=== PATIENT | female | born 1990 | race Two or more races ===

== ENCOUNTER 2025-01-21 15:24 | Outpatient (AMB) | payer MEDICAID, SELFPAY ==
[2025-01-21 15:54] VITALS: BP 116/67; PULSE 89; RESP 18; TEMP 36.2; O2SAT 98
--- NOTE | 2025-01-21 15:54 | AMB.OBVISIT ---
Vital Signs 01/21/25 15:54 Weight 85.899 kg Weight Measurement Method Standing Scale BP 116/67 Blood Pressure Source Automatic Cuff Blood Pressure Location Left Upper Arm Position Sitting Respiration 18 Pulse 89 Pulse Source Monitor Temp 97.2 F Temp Source Oral Pulse Oximetry (%) 98 Oxygen Delivery Method Room Air Allergies/Home Meds Allergies & Medications Allergies No Known Allergies Allergy (Verified 01/21/25 15:56) Medication Reconciliation vit no.95-ferrous fumarate 28 mg-folic acid 800 mcg tablet () 1 tab PO QDAY 03/01/22 [History Confirmed 01/21/25] ibuprofen 600 mg tablet 600 mg PO Q6H PRN pain #30 tabs 03/02/22 [Rx Confirmed 01/21/25] Intake Visit Data Collection New Patient or Established: New Patient not seen in past 3 years at [facility] (considered New) Reason for Visit:: disability and ROBY Seen by Clinical Staff ONLY (RN/MA): No Client Support Representative Required: No Do You Feel Safe at Home: Yes Authorities Contacted: N/A PCP or OBGYN visit in last 3 months: No Hx Now: Yes Are you currently on any form of Control: No Pain Present Currently: No Pain Scale Used: You-Thompson/Numerical Pain scale:: 0 Smoking Status Smoking Status: Never smoker Questionnaires Covid-19 Vaccine Questionnaire Has patient been vacinated for Covid-19 Have you been vacinated for Covid-19: Yes PHQ-9 PHQ-2 Over the last 2 weeks, how often have you been bothered by any of the following problems? 1. Little interest or pleasure in doing things: not at all 2. Feeling down, depressed, or hopeless: not at all Total score: 0 PHQ-9 3. Trouble falling or staying asleep, or sleeping too much: Not at all 4. Feeling tired or having little energy: Not at all 5. Poor appetite or overeating: Not at all 6. Feeling bad about yourself - or that you are a failure or have let yourself or your family down: Not at all 7. Trouble concentrating on things, such as reading the newspaper or watching television: Not at all 8. Moving or speaking so slowly that other people could have noticed? - Or the opposite - being so fidgety or restless that you have been moving around a lot more than usual: not at all 9. Thoughts that you would be better off or of hurting yourself in some way: Not at all Total score: 0 If you checked off any problems, how difficult have these problems made it for you to do your work, take care of things at home, or get along with other people?: not difficult at all Source: Developed by Drs. Eusebio George, Shirin Deshpande, Minesh Jj and colleagues, with an educational rose from [employer]. Depression screen completed yes Social History Living Situation History Marital Status: Lives With: Family Housing: House Tobacco History Smoking Status: Never smoker Second Hand Smoke Exposure: No Alcohol History Alcohol Intake: Never Domestic Abuse History Do You Feel Safe at Home: Yes Past Medical History Past Medical History Have you ever been diagnosed with any of the following: Neurological Problems Seizures: No Cardiology Problems Congestive Heart Failure: No Hypertension: No Respiratory Problems Chronic Obstructive Pulmonary Disease (COPD): No Asthma: No Stomache/Intestinal Problems Hepatitis: No Colorectal Cancer: No Genital/Urinary Problems Renal Disease: No Reproductive Problems Breast Cancer: No Pelvic Inflammatory Disease: No Musculoskeletal Problems Bone Cancer: No Endocrine Problems Diabetes Mellitus Type 1: No Diabetes Mellitus Type 2: No Blood Problems Anemia: No Psychologic Problems Depression: No Anxiety: No Other Problems Hospitalization: No Down Syndrome: No Developmental Delay: No Shingles: No Falls: No Blood Transfusions: No Blood Transfusion Reaction: No Anesthesia Reactions: No Organ Transplant: No Chemotherapy: No Radiation Therapy: No Hyperbaric Therapy: No MRSA: No VRSA: No Vancomycin-Resistant Enterococci: No Human Immunodeficiency Virus (HIV): No Chicken Pox: No Measles: No Mumps: No Rubella (Trinid[place] Measles): No Pertussis: No Clostridium Difficile: No Cancer: No Cervical Cancer: No Lung Cancer: No Ovarian Cancer: No History of Present Illness HPI Narrative 34-year-old 5 para 3 for first visit to [facility] OB department. Patient and father [facility] care. First visit at [facility] was at 8 weeks. First ultrasound was October 04. Patient was 12 weeks 4 days. This gives due date April 14, 2025. Patient is B+, antibody screen negative, RPR nonreactive, rubella immune, hepatitis B negative, hep C negative, HIV negative, her GC and Chlamydia were negative. NIPT, AFP and carrier screens all negative. Patient denies social habits. Denies surgery. Denies chronic illness. Patient reports her 1 hour GTT was high. 3-hour GTT was drawn and results are pending. 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 Constantly bending over sitting on the floor. Complains today of sciatic pain that starts up at the top of her buttocks and runs all the way down her right leg. And back pain. She reports that comfort measures and maternity girdle are not helping. Patient would like to go on disability in 2 weeks. Denies labor. Denies leaking or bleeding. Reports fetus is active Review of Systems Review of Systems Systems Reviewed: All systems reviewed, normal except as documented Visit OB Visit Log OB Flowsheet Initial Weight: Not Recorded Date <del>?</del> EGA Weight Edema CTX Effacement BP Fundal ht Pres Dilation Effacement Station Visit Note Alb Glu FHR Mov 01/21/25 <del>?</del> 28w 1d 85.899 kg absent absent 116/67 28.3 Wrong dates. Last ultrasound December 18 baby measured 23 weeks 2 growing in the 90th percentile. Patient has a follow-up maternal- medicine and February 04. Today she is complaining of sciatic pain and back pain. 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 1 hour GTT was abnormal. 3-hour GTT results are pending. Discussed comfort measures. Tylenol as needed. Patient reports that pain even with maternity girdle is not improving. Wrong dates. Last ultrasound December 18 baby measured 23 weeks 2 growing in the 90th percentile. Patient has a follow-up maternal- medicine and February 04. Today she is complaining of sciatic pain and back pain. 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 1 hour GTT was abnormal. 3-hour GTT results are pending. Discussed comfort measures. Tylenol as needed. Patient reports that pain even with maternity girdle is not improving. Return in 2 weeks OB check and to discuss further disability. 139 active BUDDY Calculator Estimated Delivery Date Method Current WG Current Estimate 04/14/25 Ultrasound #2 28w 1d Other Estimates 03/18/25 LMP (Uncertain) 32w 0d 04/14/25 Ultrasound #1 28w 1d Expected Delivery Route/Plan vaginal Exam General Limitations: no limitations General Appearance: alert, in no apparent distress, comfortable, cooperative, healthy appearing, well developed and well groomed Chest Chest inspection: Present normal inspection and symmetric chest wall rise Resp Respiratory exam: Present normal lung sounds bilaterally Card Cardiovascular exam: Present regular rate, normal rhythm and normal heart sounds Abdominal Abdominal exam: Present soft and normal bowel sounds Psych Psychiatric exam: Present normal affect and normal mood Assessment & Plan Diagnosis / Problem List (1) Encounter for supervision of normal in multigravida in second trimester: Status: Acute Plan Discussed comfort measures for back pain. Discussed disability with patient. Patient will return for both OB appointment February 04 and we will start disability. Discussed labor precautions. Discussed GDM diet with patient though 3-hour GTT is pending. Keep appointment with maternal- medicine for growth in 2 weeks. Return February 04 for scheduled OB appointment Additional Plan Follow Up: 2 Weeks (OBC) Office Procedures OB Clinic LOC & Office Proc's Nursing/Assessment Patient Status: Initial/New Patient OB Clinic Nursing Assessment: BP Monitoring, Medication Reconciliation, Update PMH in EMR and Vital Signs OB Clinic Coordination of Care: Education Complex Pt/Fam, Consent,records obtained, informed consent, Education Simp Pt/Fam, Lab and Imaging orders and Staff clarify orders New Patient Charge New Patient Point Assignment: [id number] New Patient Point Charge: SAUSAGE LINKER Level 3 ([id number])
== END 2025-01-21 16:22 | disposition home or self-care (01) ==
LOC: HODSOBC 15:24
PROVIDERS: Supervising Provider Advanced Practice Midwife; Visit Provider Advanced Practice Midwife
DX: O09.893 Supervision of other high risk pregnancies, third trimester (principal); Z3A.28 28 weeks gestation of pregnancy; O99.891 Other specified diseases and conditions complicating pregnancy; M54.40 Lumbago with sciatica, unspecified side
CPT/HCPCS: 99203; G0463

== ENCOUNTER 2025-02-04 13:23 | Outpatient (AMB) | payer MEDICAID, SELFPAY ==
--- NOTE | 2025-02-04 13:40 | AMB.OBVISIT ---
Vital Signs 02/04/25 13:41 Weight 83.574 kg Weight Measurement Method Standing Scale BP 116/70 Blood Pressure Source Automatic Cuff Blood Pressure Location Left Upper Arm Position Sitting Respiration 18 Pulse 99 Pulse Source Monitor Temp 97.2 F Temp Source Oral Pulse Oximetry (%) 99 Oxygen Delivery Method Room Air Allergies/Home Meds Allergies & Medications Allergies No Known Allergies Allergy (Verified 02/04/25 13:41) Medication Reconciliation vit no.95-ferrous fumarate 28 mg-folic acid 800 mcg tablet () 1 tab PO QDAY 03/01/22 [History Confirmed 02/04/25] ibuprofen 600 mg tablet 600 mg PO Q6H PRN pain #30 tabs 03/02/22 [Rx Confirmed 02/04/25] Intake Visit Data Collection New Patient or Established: Established Patient (seen at [facility] within 3 years) Reason for Visit:: obc Seen by Clinical Staff ONLY (RN/MA): No 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 1. Little interest or pleasure in doing things: not at all 2. Feeling down, depressed, or hopeless: not at all Total score: 0 PHQ-9 3. Trouble falling or staying asleep, or sleeping too much: Not at all 4. Feeling tired or having little energy: Not at all 5. Poor appetite or overeating: Not at all 6. Feeling bad about yourself - or that you are a failure or have let yourself or your family down: Not at all 7. Trouble concentrating on things, such as reading the newspaper or watching television: Not at all 8. Moving or speaking so slowly that other people could have noticed? - Or the opposite - being so fidgety or restless that you have been moving around a lot more than usual: not at all 9. Thoughts that you would be better off or of hurting yourself in some way: Not at all Total score: 0 If you checked off any problems, how difficult have these problems made it for you to do your work, take care of things at home, or get along with other people?: not difficult at all Source: Developed by Drs. Eusebio George, Shirin Deshpande, Minesh Jj and colleagues, with an educational rose from [employer]. Depression screen completed yes Social History Living Situation History Lives With: Family Housing: House Tobacco History Smoking Status: Never smoker Second Hand Smoke Exposure: No Alcohol History Alcohol Intake: Never Domestic Abuse History Do You Feel Safe at Home: Yes Past Medical History Past Medical History Have you ever been diagnosed with any of the following: Neurological Problems Seizures: No Cardiology Problems Congestive Heart Failure: No Hypertension: No Respiratory Problems Chronic Obstructive Pulmonary Disease (COPD): No Asthma: No Stomache/Intestinal Problems Hepatitis: No Colorectal Cancer: No Genital/Urinary Problems Renal Disease: No Reproductive Problems Breast Cancer: No Pelvic Inflammatory Disease: No Musculoskeletal Problems Bone Cancer: No Endocrine Problems Diabetes Mellitus Type 1: No Diabetes Mellitus Type 2: No Blood Problems Anemia: No Psychologic Problems Depression: No Anxiety: No Other Problems Hospitalization: No Down Syndrome: No Developmental Delay: No Shingles: No Falls: No Blood Transfusions: No Blood Transfusion Reaction: No Anesthesia Reactions: No Organ Transplant: No Chemotherapy: No Radiation Therapy: No Hyperbaric Therapy: No MRSA: No VRSA: No Vancomycin-Resistant Enterococci: No Human Immunodeficiency Virus (HIV): No Chicken Pox: No Measles: No Mumps: No Rubella (Tamazight Measles): No Pertussis: No Clostridium Difficile: No Cancer: No Cervical Cancer: No Lung Cancer: No Ovarian Cancer: No Care OB Visit Log OB Flowsheet Initial Weight: Not Recorded Date <del>?</del> EGA Weight Edema CTX Effacement BP Fundal ht Pres Dilation Effacement Station Visit Note Alb Glu FHR Mov 01/21/25 <del>?</del> 28w 1d 85.899 kg absent absent 116/67 28.3 Wrong dates. Last ultrasound December 18 baby measured 23 weeks 2 growing in the 90th percentile. Patient has a follow-up maternal- medicine and February 04. Today she is complaining of sciatic pain and back pain. 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 1 hour GTT was abnormal. 3-hour GTT results are pending. Discussed comfort measures. Tylenol as needed. Patient reports that pain even with maternity girdle is not improving. Wrong dates. Last ultrasound December 18 baby measured 23 weeks 2 growing in the 90th percentile. Patient has a follow-up maternal- medicine and February 04. Today she is complaining of sciatic pain and back pain. 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 1 hour GTT was abnormal. 3-hour GTT results are pending. Discussed comfort measures. Tylenol as needed. Patient reports that pain even with maternity girdle is not improving. Return in 2 weeks OB check and to discuss further disability. 139 active BUDDY Calculator Estimated Delivery Date Method Current WG Current Estimate 04/14/25 Ultrasound #2 30w 1d Other Estimates 03/18/25 LMP (Uncertain) 34w 0d 04/14/25 Ultrasound #1 30w 1d Expected Delivery Route/Plan vaginal Assessment & Plan Diagnosis / Problem List (1) Encounter for supervision of normal in multigravida in second trimester: Status: Acute Plan disability start 02/08/25, return to work 6 week pp. continue comfort measure for ligament pain and sciatic/low back pain. TDAP NV, discuss GDM diet and weight gain, walk 40 minute daily. f/u mfm /. rtc 2 week Office Procedures OB Clinic LOC & Office Proc's Nursing/Assessment Patient Status: Established Patient OB Clinic Nursing Assessment: BP Monitoring, Medication Reconciliation, Update PMH in EMR and Vital Signs OB Clinic Coordination of Care: Consent,records obtained, informed consent, Education Simp Pt/Fam and Staff clarify orders Special Needs: Heart tones Established Patient Charge Established Patient Point Assignment: 105 Established Patient Point Charge: EP Level 3 (80-115)
[2025-02-04 13:41] VITALS: BP 116/70; PULSE 99; RESP 18; TEMP 36.2; O2SAT 99
== END 2025-02-04 14:54 | disposition home or self-care (01) ==
LOC: HODSOBC 13:23
PROVIDERS: Supervising Provider Advanced Practice Midwife; Visit Provider Advanced Practice Midwife
DX: Z34.83 Encounter for supervision of other normal pregnancy, third trimester (principal); Z3A.30 30 weeks gestation of pregnancy
CPT/HCPCS: 81001; 99213; G0463

== ENCOUNTER 2025-03-04 09:55 | Outpatient (AMB) | payer MEDICAID, SELFPAY ==
[2025-03-04 10:01] VITALS: BP 131/71; PULSE 84; RESP 18; TEMP 36.2; O2SAT 96
--- NOTE | 2025-03-04 10:02 | OBCLNT_ITS ---
Vital Signs 03/04/25 10:01 03/04/25 10:03 Weight 87.09 kg Weight Measurement Method Standing Scale BP 131/71 H 131/71 H Blood Pressure Source Automatic Cuff Blood Pressure Location Left Upper Arm Position Sitting Respiration 18 18 Pulse 84 84 Pulse Source Monitor Temp 97.2 F 97.2 F Temp Source Oral Pulse Oximetry (%) 96 96 Oxygen Delivery Method Room Air Allergies/Home Meds Allergies & Medications Allergies No Known Allergies Allergy (Verified 03/04/25 10:02) Medication Reconciliation vit no.95-ferrous fumarate 28 mg-folic acid 800 mcg tablet () 1 tab PO QDAY 03/01/22 [History Confirmed 03/04/25] ibuprofen 600 mg tablet 600 mg PO Q6H PRN pain #30 tabs 03/02/22 [Rx Confirmed 03/04/25] Intake Visit Data Collection New Patient or Established: Established Patient (seen at [facility] within 3 years) Reason for Visit:: OBC Seen by Clinical Staff ONLY (RN/MA): No Writing Center Director Required: No Do You Feel Safe at Home: Yes Authorities Contacted: N/A PCP or OBGYN visit in last 3 months: Yes Date of Last PCP or OBGYN visit: 02/04/25 Hx Now: Yes Are you currently on any form of Control: No Pain Present Currently: No Pain Scale Used: You-Thompson/Numerical Pain scale:: 0 Smoking Status Smoking Status: Never smoker Questionnaires Covid-19 Vaccine Questionnaire Has patient been vacinated for Covid-19 Have you been vacinated for Covid-19: Yes PHQ-9 PHQ-2 Over the last 2 weeks, how often have you been bothered by any of the following problems? 1. Little interest or pleasure in doing things: not at all 2. Feeling down, depressed, or hopeless: not at all Total score: 0 PHQ-9 3. Trouble falling or staying asleep, or sleeping too much: Not at all 4. Feeling tired or having little energy: Not at all 5. Poor appetite or overeating: Not at all 6. Feeling bad about yourself - or that you are a failure or have let yourself or your family down: Not at all 7. Trouble concentrating on things, such as reading the newspaper or watching television: Not at all 8. Moving or speaking so slowly that other people could have noticed? - Or the opposite - being so fidgety or restless that you have been moving around a lot more than usual: not at all 9. Thoughts that you would be better off or of hurting yourself in some way: Not at all Total score: 0 If you checked off any problems, how difficult have these problems made it for you to do your work, take care of things at home, or get along with other people?: not difficult at all Source: Developed by Drs. Eusebio George, Shirin Deshpande, Minesh Jj and colleagues, with an educational rose from [employer]. 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 Last ultras ound December 18 baby measured 23 weeks 2 growing in the 90th percentile. Patient has a follow-up maternal- medicine and February 04. Today she is complaining of sciatic pain and back pain. 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 1 hour GTT was abnormal. 3-hour GTT results are pending. Discussed comfort measures. Tylenol as needed. Patient reports that pain even with maternity girdle is not improving. Wrong dates. Last ultrasoun d December 18 baby measured 23 weeks 2 growing in the 90th percentile. Patient has a follow-up maternal- medicine and February 04. Today she is complaining of sciatic pain and back pain. 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 1 hour GTT was abnormal. 3-hour GTT results are pending. Discussed comfort measures. Tylenol as needed. Patient reports that pain even with maternity girdle is not improving. Return in 2 weeks OB check and to discuss further disability. 02/04/25 -?-?-?-?-?-?-?-?-?-?-?-?- 30w 1d 83.574 kg 116/70 absent 30 135 ac tive no c/o PTL symptoms, fetus active. continue sciatic pain, radiates down both legs, start at top of buttocks. also c/o ligament pain, maternity girdle does not help. 04/11. tylenol does not help. 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 disability starting 02/08. 3 hr gtt normal. f/u sono 03/21/25. ptl precaution, MFM 02/01, good growth EFW 3 lb 03/04/25 -?-?-?-?-?-?-?-?-?-?-?-?- 34w 1d 87.09 kg 131/71 131/71 absent cephalic 32 146 active no ob complaints, fetus active, no leaking,no bleeding TDAP today, f/u mfm: 03/18(fetus 90%). discuss PTL precaution and fkc bid. rtc 2 week, hydrate, discuss diet and weight BUDDY Calculator Estimated Delivery Date Method Current WG Current Estimate 04/14/25 Ultrasound #1 34w 1d Other Estimates 03/18/25 LMP (Uncertain) 38w 0d 04/14/25 Ultrasound #2 34w 1d Expected Delivery Route/Plan vaginal Notes Visit Date: 03/04/25 Last Updated by: Nafisa Perez CNM 34 yo . wrong date. 10/04/24: 12w4: EDC . anatomy: 12/18: 23w1: 04/14/25. B+,abs-,rpr;;nr, rub imm, hbsag-,hiv-,hc-,GC/CT-3 hr gtt: normal Office Procedures OB Clinic LOC & Office Proc's Nursing/Assessment Patient Status: Established Patient OB Clinic Nursing Assessment: Medication Reconciliation, Update PMH in EMR and Vital Signs OB Clinic Coordination of Care: Education Complex Pt/Fam, Consent,records obtained, informed consent, Lab and Imaging orders, Results/Orders obtained and Staff clarify orders Special Needs: Heart tones Established Patient Charge Established Patient Point Assignment: 115 Established Patient Point Charge: EP Level 3 (80-115) Injection/Vaccine Admin Admin 1st Vaccine: Yes Immunizations diphth,pertus(acell),tetanus 2.5 Lf unit-8 mcg-5 Lf/0.5mL IM syringe Performing Provider: Nafisa Perez CNM Performing Location: [facility] Administered by: Mahnaz Ayala MA on 03/04/25 11:53 Dose Route Admin Location Dispensed Lot Number Expiration Date [facility] Personnel Security Assistant 0.5 mL IM Left Deltoid 0.5 mL [id number] 03/16/27 [id number] [employer] VIS Given Date VIS Provided VIS Publication Date 03/04/25 Single Vaccine 23 Eligibility Eligibility Date Funding Source Public Non[facility] Assessment & Plan Diagnosis / Problem List (1) Supervision of normal intrauterine in multigravida in third trimester: Status: Acute Plan discuss ptl prec and fkc bid, hydrate. f/u MFM 03/18, discuss GDM diet, TDAP,rtc 2 week obc Additional Plan Follow Up: 2 Weeks (obc)
[2025-03-04 10:03] VITALS: BP 131/71; PULSE 84; RESP 18; TEMP 36.2; O2SAT 96
== END 2025-03-04 10:35 | disposition home or self-care (01) ==
LOC: HODSOBC 09:55
PROVIDERS: PCP Physician Assistant; Referring Provider Physician Assistant; Supervising Provider Advanced Practice Midwife; Visit Provider Advanced Practice Midwife
DX: Z34.83 Encounter for supervision of other normal pregnancy, third trimester (principal); Z3A.34 34 weeks gestation of pregnancy; Z23 Encounter for immunization
CPT/HCPCS: 90471; 90715; 99213; G0463

== ENCOUNTER 2025-03-18 14:46 | Outpatient (AMB) | payer MEDICAID, SELFPAY ==
[2025-03-18 15:35] VITALS: BP 110/63; PULSE 75; RESP 17; TEMP 36.7; O2SAT 96
--- NOTE | 2025-03-18 15:35 | AMB.OBVISIT ---
Vital Signs 03/18/25 15:35 Weight 86.806 kg Weight Measurement Method Standing Scale BP 110/63 Blood Pressure Source Automatic Cuff Blood Pressure Location Right Upper Arm Position Sitting Respiration 17 Pulse 75 Pulse Source Monitor Temp 98.1 F Temp Source Temporal Artery Scan Pulse Oximetry (%) 96 Oxygen Delivery Method Room Air Allergies/Home Meds Allergies & Medications Allergies No Known Allergies Allergy (Verified 03/18/25 15:36) Medication Reconciliation vit no.95-ferrous fumarate 28 mg-folic acid 800 mcg tablet () 1 tab PO QDAY 03/01/22 [History Confirmed 03/18/25] ibuprofen 600 mg tablet 600 mg PO Q6H PRN pain #30 tabs 03/02/22 [Rx Confirmed 03/18/25] Intake Visit Data Collection New Patient or Established: Established Patient (seen at [facility] within 3 years) 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 1. Little interest or pleasure in doing things: not at all 2. Feeling down, depressed, or hopeless: not at all Total score: 0 PHQ-9 3. Trouble falling or staying asleep, or sleeping too much: Not at all 4. Feeling tired or having little energy: Not at all 5. Poor appetite or overeating: Not at all 6. Feeling bad about yourself - or that you are a failure or have let yourself or your family down: Not at all 7. Trouble concentrating on things, such as reading the newspaper or watching television: Not at all 8. Moving or speaking so slowly that other people could have noticed? - Or the opposite - being so fidgety or restless that you have been moving around a lot more than usual: not at all 9. Thoughts that you would be better off or of hurting yourself in some way: Not at all Total score: 0 If you checked off any problems, how difficult have these problems made it for you to do your work, take care of things at home, or get along with other people?: not difficult at all Source: Developed by Drs. Eusebio George, Shirin Deshpande, Minesh Jj and colleagues, with an educational rose from [employer]. 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 Last ultrasound December 18 baby measured 23 weeks 2 growing in the 90th percentile. Patient has a follow-up maternal- medicine and February 04. Today she is complaining of sciatic pain and back pain. 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 1 hour GTT was abnormal. 3-hour GTT results are pending. Discussed comfort measures. Tylenol as needed. Patient reports that pain even with maternity girdle is not improving. Wrong dates. Last ultrasound December 18 baby measured 23 weeks 2 growing in the 90th percentile. Patient has a follow-up maternal- medicine and February 04. Today she is complaining of sciatic pain and back pain. 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 1 hour GTT was abnormal. 3-hour GTT results are pending. Discussed comfort measures. Tylenol as needed. Patient reports that pain even with maternity girdle is not improving. Return in 2 weeks OB check and to discuss further disability. 02/04/25 <del>?</del> 30w 1d 83.574 kg 116/70 absent 30 135 active no c/o PTL symptoms, fetus active. continue sciatic pain, radiates down both legs, start at top of buttocks. also c/o ligament pain, maternity girdle does not help. 04/11. tylenol does not help. 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 disability starting 02/08. 3 hr gtt normal. f/u sono 03/21/25. ptl precaution, MFM 02/01, good growth EFW 3 lb 03/04/25 <del>?</del> 34w 1d 87.09 kg 131/71 131/71 absent cephalic 32 146 active no ob complaints, fetus active, no leaking,no bleeding TDAP today, f/u mfm: 03/18(fetus 90%). discuss PTL precaution and fkc bid. rtc 2 week, hydrate, discuss diet and weight 03/18/25 <del>?</del> 36w 1d 86.806 kg 110/63 absent cephalic 35 143 active fetus active, no complaints of UC,no leaking.no vag bleeding. gcbs today, discuss fkc bid, discuss labor precaution. MFM appointment today. rtc 2 week BUDDY Calculator Estimated Delivery Date Method Current WG Current Estimate 04/14/25 Ultrasound #1 36w 1d Other Estimates 03/18/25 LMP (Uncertain) 40w 0d 04/14/25 Ultrasound #2 36w 1d Expected Delivery Route/Plan vaginal Notes Visit Date: 03/04/25 Last Updated by: Nafisa Perez CNM 34 yo . wrong date. 10/04/24: 12w4: EDC 713/. anatomy: 12/18: 23w1: 04/14/25. B+,abs-,rpr;;nr, rub imm, hbsag-,hiv-,hc-,GC/CT-3 hr gtt: normal Office Procedures OB Clinic LOC & Office Proc's Nursing/Assessment Patient Status: Established Patient OB Clinic Nursing Assessment: Medication Reconciliation, Update PMH in EMR and Vital Signs OB Clinic Coordination of Care: Complex Care and Chronic Disease 1-5, Consent,records obtained, informed consent, Education Simp Pt/Fam, Lab and Imaging orders and Staff clarify orders Special Needs: Heart tones Miscellaneous Interventions: Culture Specimen Collection Established Patient Charge Established Patient Point Assignment: 145 Established Patient Point Charge: EP Level 4 (120-155) Assessment & Plan Diagnosis / Problem List (1) Supervision of normal intrauterine in multigravida in third trimester: Status: Acute Plan discuss labor precaution, fkc bid. hydrate, GBS today, rtc 1 week obc Additional Plan Follow Up: 1 Week (obc)
== END 2025-03-18 15:48 | disposition home or self-care (01) ==
LOC: HODSOBC 14:46
PROVIDERS: PCP Physician Assistant; Referring Provider Physician Assistant; Supervising Provider Advanced Practice Midwife; Visit Provider Advanced Practice Midwife
DX: Z34.83 Encounter for supervision of other normal pregnancy, third trimester (principal); Z3A.36 36 weeks gestation of pregnancy; Z36.85 Encounter for antenatal screening for Streptococcus B
CPT/HCPCS: 99214; G0463

== ENCOUNTER 2025-03-28 14:33 | Outpatient (AMB) | payer MEDICAID, SELFPAY ==
[2025-03-28 14:45] VITALS: BP 115/69; PULSE 78; RESP 17; TEMP 36.8; O2SAT 98
--- NOTE | 2025-03-28 14:45 | OBCLNT_ITS ---
Vital Signs 03/28/25 14:45 Weight 87.317 kg Weight Measurement Method Standing Scale BP 115/69 Blood Pressure Source Automatic Cuff Blood Pressure Location Right Upper Arm Position Sitting Respiration 17 Pulse 78 Pulse Source Monitor Temp 98.3 F Temp Source Temporal Artery Scan Pulse Oximetry (%) 98 Oxygen Delivery Method Room Air Allergies/Home Meds Allergies & Medications Allergies No Known Allergies Allergy (Verified 03/28/25 14:46) Medication Reconciliation vit no.95-ferrous fumarate 28 mg-folic acid 800 mcg tablet () 1 tab PO QDAY 03/01/22 [History Confirmed 03/28/25] ibuprofen 600 mg tablet 600 mg PO Q6H PRN pain #30 tabs 03/02/22 [Rx Confirmed 03/28/25] Intake Visit Data Collection New Patient or Established: Established Patient (seen at [facility] within 3 years) Reason for Visit:: OBC Seen by Clinical Staff 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 1. Little interest or pleasure in doing things: not at all 2. Feeling down, depressed, or hopeless: not at all Total score: 0 PHQ-9 3. Trouble falling or staying asleep, or sleeping too much: Not at all 4. Feeling tired or having little energy: Not at all 5. Poor appetite or overeating: Not at all 6. Feeling bad about yourself - or that you are a failure or have let yourself or your family down: Not at all 7. Trouble concentrating on things, such as reading the newspaper or watching television: Not at all 8. Moving or speaking so slowly that other people could have noticed? - Or the opposite - being so fidgety or restless that you have been moving around a lot more than usual: not at all 9. Thoughts that you would be better off or of hurting yourself in some way: Not at all Total score: 0 If you checked off any problems, how difficult have these problems made it for you to do your work, take care of things at home, or get along with other people?: not difficult at all Source: Developed by Drs. Eusebio George, Shirin Deshpande, Minesh Jj and colleagues, with an educational rose from [employer]. 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 No contractions, LOF, VB and reports good FM. Denies OSEGUERA, VC, and epigastric pain. - Destiny Kwon is a 34-year-old female, , presenting for routine care at 37 weeks and 4 days gestation. - Current is uncomplicated. - Patient reports feeling more pressure today. - Denies contractions, describing it as constant pressure from the baby. - No reports of leaking fluid or bleeding. - Patient is carrying a female fetus. - movement: - No concerns reported about movement. - Educated on kick counts: at least 2-3 movements in half an hour, twice daily. Care OB Visit Log OB Flowsheet Initial Weight: Not Recorded Date -?-?-?-?-?-?-?-?-?-?-?-?- EGA Weight BP Alb Glu CTX Pres Fundal ht FHR Mov Dilation Station Effacement Hx Notes Visit Note 01/21/25 -?-?-?-?-?-?-?-?-?-?-?-?- 28w 1d 85.899 kg 116/67 absent 28.3 139 active Wrong dates. Last ultrasound December 18 baby measured 23 weeks 2 growing in the 90th percentile. Patient has a follow-up maternal- medicine and February 04. Today she is complaining of sciatic pain and back pain. 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 1 hour GTT was abnormal. 3-hour GTT results are pending. Discussed comfort measures. Tylenol as needed. Patient reports that pain even with maternity girdle is not improving. Wrong dates. Last ultrasoun d December 18 baby measured 23 weeks 2 growing in the 90th percentile. Patient has a follow-up maternal- medicine and February 04. Today she is complaining of sciatic pain and back pain. 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 1 hour GTT was abnormal. 3-hour GTT results are pending. Discussed comfort measures. Tylenol as needed. Patient reports that pain even with maternity girdle is not improving. Return in 2 weeks OB check and to discuss further disability. 02/04/25 -?-?-?-?-?-?-?-?-?-?-?-?- 30w 1d 83.574 kg 116/70 absent 30 135 ac tive no c/o PTL symptoms, fetus active. continue sciatic pain, radiates down both legs, start at top of buttocks. also c/o ligament pain, maternity girdle does not help. 04/11. tylenol does not help. 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 disability starting 02/08. 3 hr gtt normal. f/u sono 03/21/25. ptl precaution, MFM 02/01, good growth EFW 3 lb 03/04/25 -?-?-?-?-?-?-?-?-?-?-?-?- 34w 1d 87.09 kg 131/71 131/71 absent cephalic 32 146 active no ob complaints, fetus active, no leaking,no bleeding TDAP today, f/u mfm: 03/18(fetus 90%). discuss PTL precaution and fkc bid. rtc 2 week, hydrate, discuss diet and weight 03/18/25 -?-?-?-?-?-?-?-?-?-?-?-?- 36w 1d 86.806 kg 110/63 absent cephalic 35 143 active fetus active, no complaints of UC,no leaking.no vag bleeding. gcbs today, discuss fkc bid, discuss labor precaution. MFM appointment today. rtc 2 week 03/28/25 -?-?-?-?-?-?-?-?-?-?-?-?- 37w 4d 87.317 kg 115/69 absent cephalic 36 145 active Reports pelvic pressure without contractions, LOF, or VB; FM reassuring. Plan is to continue routine care, review kick counts (2?3 in 30 min, twice daily), follow up next week with CNM, scan negative GBS result into chart, and advise to report contractions, leakage, or bleeding. BUDDY Calculator Estimated Delivery Date Method Current WG Current Estimate 04/14/25 Ultrasound #1 37w 5d Other Estimates 03/18/25 LMP (Uncertain) 41w 4d 04/14/25 Ultrasound #2 37w 5d Expected Delivery Route/Plan vaginal Notes Visit Date: 03/04/25 Last Updated by: Nafisa Perez, VICKEY 34 yo . wrong date. 10/04/24: 12w4: EDC 713/. anatomy: 12/18: 23w1: 04/14/25. B+,abs-,rpr;;nr, rub imm, hbsag-,hiv-,hc-,GC/CT-3 hr gtt: normal Exam General General Appearance: alert, in no apparent distress and healthy appearing Head Head exam: atraumatic Neck Neck exam: Present normal inspection and trachea midline Chest Chest inspection: Present normal inspection and symmetric chest wall rise External exam: Present normal external exam; Absent tenderness Neuro Neurological exam: Present oriented X3 Psych Psychiatric exam: Present normal affect and normal mood Office Procedures OB Clinic LOC & Office Proc's Nursing/Assessment Patient Status: Established Patient OB Clinic Nursing Assessment: Medication Reconciliation, Update PMH in EMR and Vital Signs OB Clinic Coordination of Care: Complex Care and Chronic Disease 1-5, Consent,records obtained, informed consent, Education Simp Pt/Fam and Staff clarify orders Special Needs: Heart tones Established Patient Charge Established Patient Point Assignment: 115 Established Patient Point Charge: EP Level 3 (80-115) Assessment & Plan Diagnosis / Problem List (1) Supervision of normal intrauterine in multigravida in third trimester: Status: Acute (2) Multigravida in third trimester: Status: Acute Plan Problem List - , 37 weeks and 4 days gestation - Pelvic pressure Assessment at 37 weeks and 4 days gestation presenting for routine care. is currently uncomplicated. BUDDY is April 14, 2025, based on a 12-week and 4-day ultrasound performed on 10/04/2024, consistent with a 23-week and 2-day ultrasound on 12/18/2024. Group B Strep culture negative on 03/18/2025. Patient reports feeling increased pressure but denies contractions. movement noted. Patient carrying female fetus. Plan - Continue routine care - Patient to monitor movement with kick counts twice daily - Patient to report if experiencing contractions that do not resolve, any leaking, or bleeding - Follow-up appointment scheduled for the week of April 10 with Nafisa NIEVES) - Scan negative Group B strep culture result into patient's chart 1. Progress Reviewed gestational age, growth, and heart rate. Planned frequent visits (every 2 weeks until 36 weeks, then weekly). 2. Instructed patient to monitor movements and report decreases immediately. 3. Testing Counseled on routine third-trimester labs per guidelines. Discussed potential need for ultrasound or monitoring based on risk factors. 4. Preeclampsia Precaution Educated on preeclampsia signs: severe headache, vision changes, right upper quadrant pain, sudden swelling. Advised urgent reporting of symptoms and discussed blood pressure monitoring if high risk. 5. Labor Precautions Reviewed labor signs: regular contractions, pelvic pressure, back pain, bleeding, or fluid leakage. Instructed to seek immediate care for these symptoms. 6. Lifestyle and Delivery Preparation Reinforced vitamins, nutrition, and safe activity. Discussed plan, pain management, and . Advised on labor preparation (e.g., hospital bag) and expectations. 7. Psychosocial Support Assessed emotional well-being and offered resources for mental health or parenting support.
== END 2025-03-28 15:02 | disposition home or self-care (01) ==
LOC: HODSOBC 14:33
PROVIDERS: PCP Obstetrics & Gynecology; Referring Provider Obstetrics & Gynecology; Supervising Provider Obstetrics & Gynecology; Visit Provider Obstetrics & Gynecology
DX: Z34.83 Encounter for supervision of other normal pregnancy, third trimester (principal); Z3A.37 37 weeks gestation of pregnancy
CPT/HCPCS: 99213; G0463

== ENCOUNTER 2025-04-08 04:42 | Inpatient (IN) | payer MEDICAID, SELFPAY ==
[2025-04-08] VITALS (25 sets, daily range): BP systolic 93–132; BP diastolic 53–74; PULSE 67–110; RESP 16–98; TEMP 36.6–37.2; O2SAT 96–98; BMI 35.9; BMI 35.8
[2025-04-08 06:00] LABS: Basophils # (Auto) 0.0 Thou/mm3 (0.0-0.2); Basophils % (Auto) 0 % (0-2.5); Eosinophils # (Auto) 0.1 Thou/mm3 (0.0-0.5); Eosinophils % (Auto) 1 % (0-10); Hematocrit 36.5 % (36.0-46.0); Hemoglobin 12.4 g/dL (12.0-16.0); Immature Granulocytes Auto 0.04 Thou/mm3 (0.00-0.00); Lymphocytes # (Auto) 2.7 Thou/mm3 (1.0-4.8); Lymphocytes % (Auto) 26 % (10-50); Mean Corpuscular HGB Conc 34.0 g/dl (31.0-37.0); Mean Corpuscular Hemoglobin 27.1 pg (25.0-35.0); Mean Corpuscular Volume 80 fL (80-100); Monocytes # (Auto) 0.9 Thou/mm3 (0.0-0.8); Monocytes % (Auto) 9 % (0-12); Neutrophils # (Auto) 6.8 Thou/mm3 (1.8-7.7); Neutrophils % (Auto) 64 % (37-80); Nucleated Red Blood Cell # 0.00 Thou/mm3 (0.00-0.00); Nucleated Red Blood Cell % 0 /100 WBC (0); Platelet Count 272 Thou/mm3 (140-440); RDW Standard Deviation 41.0 fL (36.4-46.3); Red Blood Count 4.57 Miln/mm3 (4.00-5.20); White Blood Count 10.5 Thou/mm3 (3.6-11.0)
--- NOTE | 2025-04-08 06:28 | PD.LDHP ---
Documentation for date of: 04/08/25 OB Labor/Induct. HPI History of Present Illness Chief complaint: Ruptured membranes : 5 Para: 3 Term pregnancies: 3 pregnancies: 0 Living children: 3 History of Abortions: Spontaneous and Elective: 1 History of Vaginal deliveries: 3 History of sections: No History of : No Date of last menstrual period: 06/11/24 BUDDY: 04/14/25 Gestational Age (weeks): 39 Gestational Age (days): 1 Gestational age based on last menstrual period: 43 History of present illness: The patient is a 34-year-old -0-1-3 who presented to OB triage reporting ruptured membranes at 415 this morning. All care is up-to-date in the chart with Nafisa Perez CNM. She has a history of 3 term uncomplicated deliveries History of Present Dating criteria: LMP confirmed by 1st trimester US Adequate Care: Yes Ultrasounds: normal mid trimester US Obstetrical complications: none Medical complications: none Labs Maternal Blood Type: B Pos Labs: Positive: Rubella Titre, Negative: RPR, Hepatitis B, HIV, Chlamydia, Gonorrhea and Group Beta Strep and Unknown: Herpes Type 1 and Herpes Type 2 Past Medical History Surgical History SURGICAL: Negative Section Meds Home Medications and Allergies Home Medications ?Medication ?Instructions ?Recorded ?Confirmed ?Type vit no.95-ferrous 1 tab PO QDAY 03/01/22 03/28/25 History fumarate 28 mg-folic acid 800 mcg tablet () Allergies Allergy/AdvReac Type Severity Reaction Status Date / Time No Known Allergies Allergy Verified 03/28/25 14:46 OB Exam Physical Exam Vital signs: Temp Pulse Resp BP Pulse Ox O2 Del Method 98.3 F 77 18 109/59 L 98 Room Air 04/08/25 06:04 04/08/25 06:17 04/08/25 06:04 04/08/25 06:17 04/08/25 04:59 04/08/25 06:04 Detailed Labor and Delivery Exam Dilation (cm): 6-7 Effacement (%): 80 Cervix position: mid station: -2 Consistency: medium Presentation: Vertex Membranes: ruptured Amniotic fluid: clear monitor accelerations: 15x15 monitor 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 She desires to go natural. She would like to follow with Nafisa Perez if possible. Additional Plan Induction method: none Plan: anticipate NVD Additional Plan Comment: Consider augmentation if patient does not progress in labor.
[2025-04-08 06:36] LABS: Syphilis Nonreactive (Nonreactive)
[2025-04-08] MEDS: METHYLERGONOVINE INJ 0.2 MG/ML VIAL IM (07:38)
[2025-04-08] MEDS: OXYTOCIN in NS 20 units 20 UNIT/1,000 ML BAG 125 UNIT IV (07:41)
--- NOTE | 2025-04-08 07:44 | PD.LDDS ---
DS: Providers Provider Date of admission: 04/08/25 05:06 Primary care physician: Physician No Primary/Family Admitting Provider: Karoline Valadez MD (OB Clinic) Attending Provider on Admission: Raghav Brown MD Attending Provider on DC: Raghav Brown MD Discharging Provider: Raghav Brown MD DS: Diagnosis Problem List Completed Was Problem List Reviewed/Reconciled?: Yes Summary/Hosp Course Brief History: The patient is a 34-year-old -0-1-3 who presented to OB triage reporting ruptured membranes at 415 this morning. All care is up-to-date in the chart with Nafisa Perez CNM. She has a history of 3 term uncomplicated deliveries Peripartum Data Delivery Method: Normal Vaginal Delivery Laceration Description: no Time Spent with Patient Time attestation: Total time spent providing and/or coordinating discharge services: Exam Vital Signs Temp Pulse Resp BP Pulse Ox O2 Del Method 99.0 F 100 18 110/56 L 97 Room Air 04/08/25 07:00 04/08/25 07:38 04/08/25 07:00 04/08/25 07:38 04/08/25 07:27 04/08/25 06:04 Discharge Plan Plan Patient Disposition: HOME (Self Care) Patient condition on transfer: Stable Prescriptions/Referrals Prescriptions/Med Rec: Continued PNV cmb#95-ferrous fumarate-FA [] 28 mg iron- 800 mcg Tablet 1 tab PO QDAY ibuprofen 600 mg tablet 600 mg PO Q6H PRN (Reason: pain) Qty: 30 0RF Referrals: No Primary/Family,Physician [Primary Care Provider] - Patient/Caregiver Discharge Instructions Discharge Activity: activity as tolerated Other Discharge Activity Instructions:: Follow up office with Primary Office Provider in 6 weeks. Print Language: Portuguese Stand Alone Forms: Ellen Award Info., Patient Portal Info Letter Planned Discharge Date 04/09/25
[2025-04-08] MEDS: IBUPROFEN TAB 400 MG TABLET 800 MG PO (07:53)
[2025-04-08] MEDS: BENZO/LANO/ALOE (Dermoplast) 60 GM CAN 1 SPRAY TOP (07:57)
--- NOTE | 2025-04-08 08:07 | PD.LDDELS ---
Data (Odom) Data Hx Section: No : 5 Term: 3 : 0 Livin Abortions: Spontaneous & Theraputic: 1 Delivery Data (Odom) Labor Data Initiation of labor: Spontaneous Induction/Augmentation Agent: None ROM date: 04/08/25 ROM time: 05:29 Amniotic membrane rupture type: Spontaneous Amniotic fluid description: Clear Delivery Data EDC: 04/14/25 EDC calculated by:: LMP/early US confirmation Onset of labor date: 04/08/25 Onset of labor time: 05:29 Complete dilation date: 04/08/25 Complete dilation time: 07:18 Holland delivery date: 04/08/25 Holland delivery time: 07:31 Gestational age (weeks): 39 Gestational age (days): 1 Placenta delivery date: 04/08/25 Placenta delivery time: :36 Stage 1 total time: Labor - Stage 1 Duration 1 hours and 49 minutes Delivered by: Delivery nurse: Jessenia Matamoros nurse: [facility] Medical Practice Manager at delivery: No Support person(s) at delivery: FOB Delivery Method Delivery method: Normal Vaginal Delivery Presentation: Vertex position: OA Anesthesia Type Anesthesia Type: None Placenta Placenta delivery description: Spontaneous Cord blood sent to lab: Yes cord blood collection: Cord Blood Type Episiotomy Episiotomy description: None EBL Estimated blood loss (ml): 150 Umbilical Cord cord description: 3 Vessels Complications Complications: None Holland Data (Odom) Holland Data order: 1 Holland's gender: Female Identification band number: [id number] weight (gms): 7 lb 5.815 oz Weight (pounds): 7 lbs and 5.8 ozs length: 21.5 in 1 minute: 9 5 minutes: 9
[2025-04-08 13:03] LABS: Basophils # (Auto) 0.0 Thou/mm3 (0.0-0.2); Basophils % (Auto) 0 % (0-2.5); Eosinophils # (Auto) 0.0 Thou/mm3 (0.0-0.5); Eosinophils % (Auto) 0 % (0-10); Hematocrit 37.0 % (36.0-46.0); Hemoglobin 12.0 g/dL (12.0-16.0); Immature Granulocytes Auto 0.06 Thou/mm3 (0.00-0.00); Lymphocytes # (Auto) 1.7 Thou/mm3 (1.0-4.8); Lymphocytes % (Auto) 12 % (10-50); Mean Corpuscular HGB Conc 32.4 g/dl (31.0-37.0); Mean Corpuscular Hemoglobin 26.9 pg (25.0-35.0); Mean Corpuscular Volume 83 fL (80-100); Monocytes # (Auto) 0.5 Thou/mm3 (0.0-0.8); Monocytes % (Auto) 4 % (0-12); Neutrophils # (Auto) 12.4 Thou/mm3 (1.8-7.7); Neutrophils % (Auto) 84 % (37-80); Nucleated Red Blood Cell # 0.00 Thou/mm3 (0.00-0.00); Nucleated Red Blood Cell % 0 /100 WBC (0); Platelet Count 232 Thou/mm3 (140-440); RDW Standard Deviation 42.4 fL (36.4-46.3); Red Blood Count 4.46 Miln/mm3 (4.00-5.20); White Blood Count 14.7 Thou/mm3 (3.6-11.0)
[2025-04-09 00:03] VITALS: BP 114/65; PULSE 81; RESP 17; TEMP 37.1; O2SAT 97
[2025-04-09 04:13] VITALS: BP 111/66; PULSE 84; RESP 18; TEMP 36.8; O2SAT 98
[2025-04-09 08:45] VITALS: BP 106/55; PULSE 89; RESP 15; TEMP 36.6; O2SAT 96
--- NOTE | 2025-04-09 09:07 | ESDS_ITS ---
DS: Providers Provider Date of admission: 04/08/25 05:06 Primary care physician: Physician No Primary/Family Admitting Provider: Karoline Valadez MD (OB Clinic) Attending Provider on Admission: Kyrie Coughlin MD Consults: 04/08/25 08:35 Referral Routine Comment: Attending Provider on DC: Kyrie Coughlin MD Discharging Provider: Kyrie Coughlin MD DS: Diagnosis Discharge Diagnosis (1) Supervision of normal intrauterine in multigravida in third trimester: Status: Acute (2) Spontaneous vaginal delivery: Status: Acute Problem List Completed Was Problem List Reviewed/Reconciled?: Yes Summary/Hosp Course Brief History: The patient is a 34-year-old -0-1-3 who presented to OB triage reporting ruptured membranes at 415 this morning. All care is up-to-date in the chart with Nafisa Perez CNM. She has a history of 3 term uncomplicated deliveries Peripartum Data Delivery Method: Normal Vaginal Delivery Episiotomy Description: None Time Spent with Patient Time attestation: Total time spent providing and/or coordinating discharge services: Exam Vital Signs Temp Pulse Resp BP Pulse Ox O2 Del Method 98.2 F 84 18 111/66 98 Room Air 04/09/25 04:13 04/09/25 04:13 04/09/25 04:13 04/09/25 04:13 04/09/25 04:13 04/09/25 04:13 Discharge Plan Plan Patient Disposition: HOME (Self Care) Patient condition on transfer: Stable Prescriptions/Referrals Prescriptions/Med Rec: Continued PNV cmb#95-ferrous fumarate-FA [] 28 mg iron- 800 mcg Tablet 1 tab PO QDAY ibuprofen 600 mg tablet 600 mg PO Q6H PRN (Reason: pain) Qty: 30 0RF Referrals: Kyrie Coughlin MD [Physician] - No Primary/Family,Physician [Primary Care Provider] - Patient/Caregiver Discharge Instructions Discharge Activity: activity as tolerated Other Discharge Activity Instructions:: Follow up office with Primary Office Provider in 6 weeks. Education Materials: After a Vaginal , After Delivery Concerns, Breast Care After , Incision Care After Vaginal , Nutrition While , Understanding Depression, : Caring for Yourself, Feel Healthy After Print Language: Northern Irish Stand Alone Forms: Ellen Award Info., Patient Portal Info Letter Discharge Order Discharge Orders: Discharge (Routine); Ordered 04/09/25 Ordered By: Kyrie Coughlin Planned Discharge Date 04/09/25
--- NOTE | 2025-04-09 09:07 | PD.LDPPPRG ---
Subjective Subjective Interval history: Delivery type: Patient doing well this morning. No acute complaints. Ambulating, tolerating p.o. and voiding without difficulty. HTN/Pre-Eclampsia screen: No chest pain, shortness of breath, headache, visual changes, epigastric or right upper quadrant pain. Breast-feeding, lochia diminishing. Bowel: Flatus+/ BM+ Exam Vital Signs Temp Pulse Resp BP Pulse Ox O2 Del Method 98.2 F 84 18 111/66 98 Room Air 04/09/25 04:13 04/09/25 04:13 04/09/25 04:13 04/09/25 04:13 04/09/25 04:13 04/09/25 04:13 Constitutional Constitutional: no acute distress Routine HEENT Exam Head: Present normocephalic and atraumatic Eye: Present EOMI and PERRL ENT: Present mucous membranes moist Routine Neck Exam Neck: Present supple and trachea midline Routine Respiratory Exam Respiratory: Present chest non-tender, lungs clear, normal breath sounds and no resp distress Routine Cardiovascular Exam Cardiovascular: Present RRR Routine Abdominal Exam Abdominal: Present soft and normoactive bowel sounds Routine Extremities Exam Extremities: Present full ROM Routine Skin Exam Skin: Present intact, dry and warm Routine Neurological Exam Neurological: Present alert, oriented X3 and CN II-XII intact Routine Psychiatric Exam Psychiatric: Present normal affect and normal thought process Objective Labs 04/08/25 12:39 Labs: Laboratory Results - last 24 hr 04/08/25 12:39 WBC 14.7 H RBC 4.46 Hgb 12.0 Hct 37.0 MCV 83 MCH 26.9 MCHC 32.4 RDW Std Deviation 42.4 Plt Count 232 D Neut % (Auto) 84 H Lymph % (Auto) 12 [place] % (Auto) 4 Eos % (Auto) 0 Baso % (Auto) 0 Neut # (Auto) 12.4 H Lymph # (Auto) 1.7 [place] # (Auto) 0.5 Eos # (Auto) 0.0 Baso # (Auto) 0.0 Immature Gran # (Auto) 0.06 H Absolute Nucleated RBC 0.00 Immature Gran % 0 Nucleated RBC % 0 Assessment & Plan Problem List (1) Supervision of normal intrauterine in multigravida in third trimester: Status: Acute Assessment and plan: 1. Continue routine /post-op care 2. Labs reviewed, cbc appropriate 3. Remove dressing/[place] 4. Encourage to ambulate, shower 5. Encourage PO intake, breast feeding Time Spent With Patient Time: Total time spent is greater than 50% in coordination of care (as documented) at patient's floor/unit and/or counseling patient:
== END 2025-04-09 15:30 | disposition home or self-care (01) | DRG 560 ==
LOC: S4SX 08:21 → S4NX 11:14
PROVIDERS: Specialist; Admitting Provider Obstetrics & Gynecology; Visit Provider Obstetrics & Gynecology
DX: O80 Encounter for full-term uncomplicated delivery (principal); Z37.0 Single live birth; Z3A.39 39 weeks gestation of pregnancy
CPT/HCPCS: 36415; 59409; 80307; 85025; 86780; 86850; 86900; 86901; 94762; J2210; J2590; A9270

== ENCOUNTER 2025-04-30 08:51 | Outpatient (AMB) | payer MEDICAID, SELFPAY ==
[2025-04-30 09:07] VITALS: BP 120/73; PULSE 85; RESP 16; TEMP 36.6; O2SAT 95; BMI 33.5
--- NOTE | 2025-04-30 09:09 | AMBOBPPN_ITS ---
Vital Signs 04/30/25 09:07 04/30/25 09:13 Height 1.57 m Height Method Stated Weight 83.178 kg Weight Measurement Method Standing Scale BMI 33.5 BP 120/73 120/73 Blood Pressure Source Automatic Cuff Blood Pressure Location Left Upper Arm Position Sitting Respiration 16 16 Pulse 85 85 Pulse Source Monitor Temp 97.8 F 97.8 F Temp Source Oral Pulse Oximetry (%) 95 95 Oxygen Delivery Method Room Air Allergies/Home Meds Allergies & Medications Allergies No Known Allergies Allergy (Verified 04/30/25 09:09) Medication Reconciliation vit no.95-ferrous fumarate 28 mg-folic acid 800 mcg tablet () 1 tab PO QDAY 03/01/22 [History Confirmed 04/30/25] Intake Visit Data Collection New Patient or Established: Established Patient (seen at [facility] within 3 years) Reason for Visit:: Seen by Clinical Staff ONLY (RN/MA): No Bed Maker Required: No Do You Feel Safe at Home: Yes Authorities Contacted: N/A PCP or OBGYN visit in last 3 months: Yes Hx Now: Yes Are you currently on any form of Control: No Pain Present Currently: No Pain Scale Used: You-Thompson/Numerical Pain scale:: 0 Smoking Status Smoking Status: Never smoker 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 OF 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: Past Medical History Past Medical History: No Hx Neurological Disorders, No Hx Breast Cancer, No Hx Cardiac Disorders, No Hx Hypertension, No Hx Cancer, No Hx Blood Disorders, No Hx Anemia, No Hx Gastrointestinal Disorders, No Hx Renal Disease, No Hx Diabetes Mellitus Type 1 and No Hx Diabetes Mellitus Type 2 Questionnaires Covid-19 Vaccine Questionnaire Has patient been vacinated for Covid-19 Have you been vacinated for Covid-19: Yes Social History Living Situation History Lives With: Family Housing: House Tobacco History Smoking Status: Never smoker Second Hand Smoke Exposure: No Alcohol History Alcohol Intake: Never Domestic Abuse History Do You Feel Safe at Home: Yes EPDS - PP Depression Screening [place] Pospartum Depression Screen I have been able to laugh and see the funny side of things: (1) Not quite so much now I have looked forward with enjoyment to things: (1) Rather less than I used to I have blamed myself unnecessarily when things went wrong: (1) Not very often I have been anxious or worried for no good reason: (3) Yes, very often I have felt scared or panicky for no very good reason: (3) Yes, quite a lot Things have been getting on top of me: (2) Yes, sometimes I haven't been coping as well as usual I have been so unhappy that I have had difficulty sleeping: (2) Yes, sometimes I have felt sad or miserable: (2) Yes, quite often I have been so unhappy that I have been crying: (1) Only occasionally The thought of harming myself has occurred to me: (0) Never EPDS completed yes Care OB Visit Log OB Flowsheet Initial Weight: Not Recorded Date -?-?-?-?-?-?-?-?-?-?-?-?- EGA Weight BP Alb Glu CTX Pres Fundal ht FHR Mov Dilation Station Effacement Hx Notes Visit Note 01/21/25 -?-?-?-?-?-?-?-?-?-?-?-?- 28w 1d 85.899 kg 116/67 absent 28.3 139 active Wrong dates. Last ultrasound December 18 baby measured 23 weeks 2 growing in the 90th percentile. Patient has a follow-up maternal- medicine and February 04. Today she is complaining of sciatic pain and back pain. 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 1 hour GTT was abnormal. 3-hour GTT results are pending. Discussed comfort measures. Tylenol as needed. Patient reports that pain even with maternity girdle is not improving. Wrong dates. Last ultrasoun d December 18 baby measured 23 weeks 2 growing in the 90th percentile. Patient has a follow-up maternal- medicine and February 04. Today she is complaining of sciatic pain and back pain. 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 1 hour GTT was abnormal. 3-hour GTT results are pending. Discussed comfort measures. Tylenol as needed. Patient reports that pain even with maternity girdle is not improving. Return in 2 weeks OB check and to discuss further disability. 02/04/25 -?-?-?-?-?-?-?-?-?-?-?-?- 30w 1d 83.574 kg 116/70 absent 30 135 ac tive no c/o PTL symptoms, fetus active. continue sciatic pain, radiates down both legs, start at top of buttocks. also c/o ligament pain, maternity girdle does not help. 04/11. tylenol does not help. 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 disability starting 02/08. 3 hr gtt normal. f/u sono 03/21/25. ptl precaution, MFM 02/01, good growth EFW 3 lb 03/04/25 -?-?-?-?-?-?-?-?-?-?-?-?- 34w 1d 87.09 kg 131/71 131/71 absent cephalic 32 146 active no ob complaints, fetus active, no leaking,no bleeding TDAP today, f/u mfm: 03/18(fetus 90%). discuss PTL precaution and fkc bid. rtc 2 week, hydrate, discuss diet and weight 03/18/25 -?-?-?-?-?-?-?-?-?-?-?-?- 36w 1d 86.806 kg 110/63 absent cephalic 35 143 active fetus active, no complaints of UC,no leaking.no vag bleeding. gcbs today, discuss fkc bid, discuss labor precaution. MFM appointment today. rtc 2 week 03/28/25 -?-?-?-?-?-?--?-?-?-?-?-?- 37w 4d 87.317 kg 115/69 absent cephalic 36 145 active Reports pelvic pressure without contractions, LOF, or VB; FM reassuring. Plan is to continue routine care, review kick counts (2?3 in 30 min, twice daily), follow up next week with CNM, scan negative GBS result into chart, and advise to report contractions, leakage, or bleeding. BUDDY Calculator Estimated Delivery Date Method Current WG Current Estimate 04/14/25 Ultrasound #1 42w 2d Other Estimates 03/18/25 LMP (Uncertain) 46w 1d 04/14/25 Ultrasound #2 42w 2d Expected Delivery Route/Plan vaginal Notes Visit Date: 03/04/25 Last Updated by: Nafisa Perez CNM 34 yo . wrong date. 1/2/25: 12w4: EDC 713/. anatomy: 12/18: 23w1: 04/14/25. B+,abs-,rpr;;nr, rub imm, hbsag-,hiv-,hc-,GC/CT-3 hr gtt: normal HPI Interval History: 34-year-old 5 para 4 for 3-week . Patient had a vaginal delivery April 08, 2025. She had a baby girl weighing 7 pounds 6 ounces she delivered at 39 weeks 1 day. She had a normal . Noncomplicated. Siblings are adjusting. Patient has limited help. The father the baby is involved but is working. Patient is breast-feeding. Patient says that she is having good and bad days. Sometimes depressed sometimes happy. She cries and feels sad. No complaints of pain or discomfort. She is unsure about control Was or delivery considered high risk: No Delivery type: vaginal Was labor induced: no Gestational age at delivery (weeks): 39.1 Delivery date: 04/08/25 Delivering provider: md harpal Delivery complications: Yes Is patient infant: Yes Is patient sexually active: No Contraception planned: unsure Review of Systems Review of Systems ROS limited to current DIRECTOR OF 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 complaints: Yes Exam Narrative Physical exam: Normal heart rate and rhythm. Lungs clear no wheezes. Abdomen is soft nontender. Uterus well involuted. Perineum is intact no lacerations. No swelling. Small lochia. Negative Homans' sign. 2+ DTRs. No edema no swelling. Breasts are soft General Limitations: no limitations General Appearance: alert, in no apparent distress, comfortable, cooperative, h ealthy appearing, well developed and well groomed Chest Chest inspection: Present normal inspection and symmetric chest wall rise Resp Respiratory exam: Present normal lung sounds bilaterally Card Cardiovascular exam: Present regular rate, normal rhythm and normal heart sounds Abdominal Abdominal exam: Present soft and normal bowel sounds Extremities Extremities exam: Present normal inspection and full ROM Psych Psychiatric exam: Present normal affect and normal mood Office Procedures OB Clinic LOC & Office Proc's Nursing/Assessment Patient Status: Established Patient OB Clinic Nursing Assessment: Medication Reconciliation, Update PMH in EMR and Vital Signs OB Clinic Coordination of Care: Complex Care and Chronic Disease 1-5, Consent,records obtained, informed consent, Education Simp Pt/Fam, Lab and Imaging orders, Results/Orders obtained and Staff clarify orders Established Patient Charge Established Patient Point Assignment: 105 Post Follow-up Visit Post Follow up Visit: Yes Assessment & Plan Diagnosis / Problem List (1) 2 weeks follow-up: Status: Acute Plan Advised patient to schedule appointment with family practice provider at [facility] this week. Family practice provider will refer patient to behavioral health at [facility]. Continue vitamins. Tylenol or ibuprofen for discomfort. Okay to walk and light exercise. Increase fluids. Discussed latching and breast-feeding positions. Return in 2 weeks for control to follow-up on depression Care Uterus involuted to: 3 below Perineal / incision healing noted: Yes Screened for depression: Yes Depression counseling provided: Yes Discussed family planning & contraception: Yes Contraception planned: unsure Counseling on safe resumption of sexual activity: Yes Counseling on gradual excercise: Yes Discussed and concerns (describe), provided support: Yes Referred to imaging specialist: No Counseled on good nutrition, hydration, and self care: Yes Infant care discussed; questions answered: feeding Follow up: routine/prn Additional counseling & anticipatory guidance provided: RTC 3 week f/u
[2025-04-30 09:13] VITALS: BP 120/73; PULSE 85; RESP 16; TEMP 36.6; O2SAT 95
== END 2025-04-30 09:23 | disposition home or self-care (01) ==
LOC: HODSOBC 08:51
PROVIDERS: Supervising Provider Advanced Practice Midwife; Visit Provider Advanced Practice Midwife
DX: Z39.2 Encounter for routine postpartum follow-up (principal); Z39.1 Encounter for care and examination of lactating mother

== ENCOUNTER 2025-05-14 10:04 | Outpatient (AMB) | payer MEDICAID, SELFPAY ==
--- NOTE | 2025-05-14 10:20 | AMBOBPPN_ITS ---
Vital Signs 05/14/25 10:21 Height 1.57 m Height Method Stated Weight 83.915 kg Weight Measurement Method Standing Scale BMI 34.0 BP 113/77 Blood Pressure Source Automatic Cuff Blood Pressure Location Right Upper Arm Position Sitting Respiration 17 Pulse 84 Pulse Source Monitor Temp 98.0 F Temp Source Temporal Artery Scan Pulse Oximetry (%) 96 Oxygen Delivery Method Room Air Allergies/Home Meds Allergies & Medications Allergies No Known Allergies Allergy (Verified 05/14/25 10:27) Medication Reconciliation vit no.95-ferrous fumarate 28 mg-folic acid 800 mcg tablet () 1 tab PO QDAY 03/01/22 [History Confirmed 05/14/25] norethindrone (contraceptive) 0.35 mg tablet 0.35 mg PO QDAY #84 tabs 05/14/25 [Rx] Intake Visit Data Collection New Patient or Established: Established Patient (seen at [facility] within 3 years) Reason for Visit:: Seen by Clinical Staff ONLY (RN/MA): No Cia Agent Required: No Do You Feel Safe at Home: Yes Authorities Contacted: N/A PCP or OBGYN visit in last 3 months: Yes Date of Last PCP or OBGYN visit: 04/30/25 Hx Now: No Are you currently on any form of Control: No Pain Present Currently: No Pain Scale Used: You-Thompson/Numerical Pain scale:: 0 Smoking Status Smoking Status: Never smoker 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: Past Medical History Past Medical History: No Hx Neurological Disorders, No Hx Breast Cancer, No Hx Cardiac Disorders, No Hx Hypertension, No Hx Cancer, No Hx Blood Disorders, No Hx Anemia, No Hx Gastrointestinal Disorders, No Hx Renal Disease, No Hx Diabetes Mellitus Type 1 and No Hx Diabetes Mellitus Type 2 Questionnaires Covid-19 Vaccine Questionnaire Has patient been vacinated for Covid-19 Have you been vacinated for Covid-19: No Social History Living Situation History Marital Status: Lives With: Family Housing: House Tobacco History Smoking Status: Never smoker Second Hand Smoke Exposure: No Alcohol History Alcohol Intake: Never Domestic Abuse History Do You Feel Safe at Home: Yes EPDS - PP Depression Screening [place] Pospartum Depression Screen I have been able to laugh and see the funny side of things: (1) Not quite so much now I have looked forward with enjoyment to things: (1) Rather less than I used to I have blamed myself unnecessarily when things went wrong: (2) Yes, some of the time I have been anxious or worried for no good reason: (3) Yes, very often I have felt scared or panicky for no very good reason: (2) Yes, sometimes Things have been getting on top of me: (2) Yes, sometimes I haven't been coping as well as usual I have been so unhappy that I have had difficulty sleeping: (2) Yes, sometimes I have felt sad or miserable: (1) Not very often I have been so unhappy that I have been crying: (2) Yes, quite often The thought of harming myself has occurred to me: (0) Never Total Score: EPDS Score: Referral is indicated for score of 9 or more, suicidal, or if provider believes patient is depressed regardless of score.: 16 EPDS completed yes Care OB Visit Log OB Flowsheet Initial Weight: Not Recorded Date -?-?-?-?-?-?-?-?-?-?-?-?- EGA Weight BP Alb Glu CTX Pres Fundal ht FHR Mov Dilation Station Effacement Hx Notes Visit Note 01/21/25 -?-?-?-?-?-?-?-?-?-?--?-?- 28w 1d 85.899 kg 116/67 absent 28.3 139 active Wrong dates. Last ultrasound December 18 baby measured 23 weeks 2 growing in the 90th percentile. Patient has a follow-up maternal- medicine and February 04. Today she is complaining of sciatic pain and back pain. 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 1 hour GTT was abnormal. 3-hour GTT results are pending. Discussed comfort measures. Tylenol as needed. Patient reports that pain even with maternity girdle is not improving. Wrong dates. Last ultrasoun d December 18 baby measured 23 weeks 2 growing in the 90th percentile. Patient has a follow-up maternal- medicine and February 04. Today she is complaining of sciatic pain and back pain. 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 1 hour GTT was abnormal. 3-hour GTT results are pending. Discussed comfort measures. Tylenol as needed. Patient reports that pain even with maternity girdle is not improving. Return in 2 weeks OB check and to discuss further disability. 02/04/25 -?-?-?-?-?-?-?-?-?-?-?-?- 30w 1d 83.574 kg 116/70 absent 30 135 ac tive no c/o PTL symptoms, fetus active. continue sciatic pain, radiates down both legs, start at top of buttocks. also c/o ligament pain, maternity girdle does not help. 04/11. tylenol does not help. 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 disability starting 02/08. 3 hr gtt normal. f/u sono 03/21/25. ptl precaution, MFM 02/01, good growth EFW 3 lb 03/04/25 -?-?-?-?-?-?-?-?-?-?-?-?- 34w 1d 87.09 kg 131/71 131/71 absent cephalic 32 146 active no ob complaints, fetus active, no leaking,no bleeding TDAP today, f/u mfm: 03/18(fetus 90%). discuss PTL precaution and fkc bid. rtc 2 week, hydrate, discuss diet and weight 03/18/25 -?-?-?-?-?-?-?-?-?-?-?-?- 36w 1d 86.806 kg 110/63 absent cephalic 35 143 active fetus active, no complaints of UC,no leaking.no vag bleeding. gcbs today, discuss fkc bid, discuss labor precaution. MFM appointment today. rtc 2 week 03/28/25 -?-?-?-?-?-?-?-?-?-?-?-?- 37w 4d 87.317 kg 115/69 absent cephalic 36 145 active Reports pelvic pressure without contractions, LOF, or VB; FM reassuring. Plan is to continue routine care, review kick counts (2?3 in 30 min, twice daily), follow up next week with CNM, scan negative GBS result into chart, and advise to report contractions, leakage, or bleeding. BUDDY Calculator Estimated Delivery Date Method Current WG Current Estimate 04/14/25 Ultrasound #1 44w 2d Other Estimates 03/18/25 LMP (Uncertain) 48w 1d 04/14/25 Ultrasound #2 44w 2d Expected Delivery Route/Plan vaginal Notes Visit Date: 03/04/25 Last Updated by: Nafisa Perez CNM 34 yo . wrong date. 10/04/24: 12w4: EDC 713/. anatomy: 12/18: 23w1: 04/14/25. B+,abs-,rpr;;nr, rub imm, hbsag-,hiv-,hc-,GC/CT-3 hr gtt: normal HPI Interval History: 34-year-old 5 para 4 for 6-week . Patient had a vaginal that was uncomplicated April 13, 2025. The baby weighed 7 pounds 6 ounces. Patient delivered at 39 weeks 1 day. Siblings are adjusting. The father the baby is involved but is back to work. And patient has limited help at home. Patient had expressed complaints of feeling sad and worried and anxious about the care of her baby at her last visit. Patient was scheduled with family practice for anxiety and depression. And she also is seeing a therapist at [facility] as well. Patient has a visit scheduled with both the family practice physician and therapist in a week. Patient has not resumed sexual activity. She desires to start the control pill. 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 complaints: Yes Office Procedures OB Clinic LOC & Office Proc's Nursing/Assessment Patient Status: Established Patient OB Clinic Nursing Assessment: Medication Reconciliation, Update PMH in EMR and Vital Signs OB Clinic Coordination of Care: Complex Care and Chronic Disease 1-5, Consent,records obtained, informed consent, Education Simp Pt/Fam and Staff clarify orders Established Patient Charge Established Patient Point Assignment: 85 Post Follow-up Visit Post Follow up Visit: Yes Assessment & Plan Diagnosis / Problem List (1) Routine Follow-Up: (2) 2 weeks follow-up: Status: Acute Plan Micronor x 6. Start today. Reviewed method and side effects. I also discussed about compliance. Condoms for 2 weeks. Extend disability for 4 weeks. So patient will return back to work June 22 2025. She is patient advised to continue her follow-up next week with her family practice and with her therapist. Advised to increase naps and rest when she can. I discussed the need for her to ask family for support so that she can have some time to herself. Continue multivitamin prenatals. Okay to resume exercise increase fluids. Return in 3 months for follow-up Care Reviewed delivery summary and any complications: Yes Uterus involuted to: 3 below umb Perineal / incision healing noted: Yes Screened for depression: Yes Depression counseling provided: Yes Discussed family planning & contraception: Yes Contraception planned: mini pill Counseling on safe resumption of sexual activity: Yes Counseling on gradual excercise: Yes Discussed and concerns (describe), provided support: Yes Referred to family program specialist: Yes Counseled on good nutrition, hydration, and self care: Yes Reviewed vaccine status: Yes Chronic & current problems reconciled on problem list: No care discussed; questions answered: feeding Follow up: routine/prn Additional counseling & anticipatory guidance provided: rtc 6 month (FP) Tobacco Smoking Status: Never smoker
[2025-05-14 10:21] VITALS: BP 113/77; PULSE 84; RESP 17; TEMP 36.7; O2SAT 96; BMI 34.0
== END 2025-05-14 10:45 | disposition home or self-care (01) ==
LOC: HODSOBC 10:04
PROVIDERS: Supervising Provider Advanced Practice Midwife; Visit Provider Advanced Practice Midwife
DX: Z39.2 Encounter for routine postpartum follow-up (principal); Z39.1 Encounter for care and examination of lactating mother
CPT/HCPCS: Z1038

== ENCOUNTER 2025-08-12 10:08 | Outpatient (AMB) | payer MEDICAID, SELFPAY ==
--- NOTE | 2025-08-12 10:21 | GYNCLNT_ITS ---
Vital Signs 08/12/25 10:22 Height 1.57 m Height Method Stated Weight 84.822 kg Weight Measurement Method Standing Scale BMI 34.4 BP 112/69 Blood Pressure Source Automatic Cuff Blood Pressure Location Left Upper Arm Position Sitting Respiration 18 Pulse 72 Pulse Source Monitor Temp 97 F Temp Source Oral Pulse Oximetry (%) 98 Oxygen Delivery Method Room Air Allergies/Home Meds Allergies & Medications Allergies No Known Allergies Allergy (Verified 08/12/25 10:23) Medication Reconciliation vit no.95-ferrous fumarate 28 mg-folic acid 800 mcg tablet () 1 tab PO QDAY 03/01/22 [History Confirmed 08/12/25] norethindrone (contraceptive) 0.35 mg tablet 0.35 mg PO QDAY #84 tabs 05/14/25 [Rx Confirmed 08/12/25] Intake Visit Data Collection New Patient or Established: Established Patient (seen at [facility] within 3 years) Reason for Visit:: follow up Seen by Clinical Staff ONLY (RN/MA): No Environmental Construction Engineer Required: No Do You Feel Safe at Home: Yes Authorities Contacted: N/A PCP or OBGYN visit in last 3 months: Yes Date of Last PCP or OBGYN visit: 05/14/25 Hx Now: No Are you currently on any form of Control: Yes Pain Present Currently: No Pain Scale Used: You-Thompson/Numerical Pain scale:: 0 Smoking Status Smoking Status: Never smoker Immunizations Flu Vaccine in the Last 12 Months: No Flu Vaccine Exclusion Criteria: No 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 Menstrual regularity: regular Flow: normal Monthly: Yes Age at menarche: 17 Menopausal: No Currently sexually active: Yes 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 1. Little interest or pleasure in doing things: not at all 2. Feeling down, depressed, or hopeless: not at all Total score: 0 PHQ-9 3. Trouble falling or staying asleep, or sleeping too much: Not at all 4. Feeling tired or having little energy: Not at all 5. Poor appetite or overeating: Not at all 6. Feeling bad about yourself - or that you are a failure or have let yourself or your family down: Not at all 7. Trouble concentrating on things, such as reading the newspaper or watching television: Not at all 8. Moving or speaking so slowly that other people could have noticed? - Or the opposite - being so fidgety or restless that you have been moving around a lot more than usual: not at all 9. Thoughts that you would be better off or of hurting yourself in some way: Not at all Total score: 0 If you checked off any problems, how difficult have these problems made it for you to do your work, take care of things at home, or get along with other people?: not difficult at all Source: Developed by Drs. Eusebio George, Shirin Deshpande, Minesh Jj and colleagues, with an educational rose from [employer]. Depression screen completed yes Social History Living Situation History Lives With: Family Housing: House Tobacco History Smoking Status: Never smoker Second Hand Smoke Exposure: No Alcohol History Alcohol Intake: Never Domestic Abuse History Do You Feel Safe at Home: Yes History of Present Illness HPI Narrative 34-year-old 5 para 4 for pill refill. Patient is breast-feeding her 4-month-old. She takes Nargis with good compliance. Denies any side effects. She does have some irregular spotting. Denies any medical habits. Denies surgery. Denies chronic illness. Patient's last Pap was 2023. Review of Systems Review of Systems Systems Reviewed: All systems reviewed, normal except as documented Exam General Limitations: no limitations General Appearance: alert, in no apparent distress, comfortable, cooperative, healthy appearing, well developed and well groomed Chest Chest inspection: Present normal inspection and symmetric chest wall rise Resp Respiratory exam: Present normal lung sounds bilaterally Card Cardiovascular exam: Present regular rate, normal rhythm and normal heart sounds Abdominal Abdominal exam: Present soft and normal bowel sounds Office Procedures [facility] LOC & Office Proc's Nursing/Assessment Patient Status: Established Patient [facility] Clinic Nursing Assessment: Medication Reconciliation, O2 Delivery, Update PMH in EMR and Vital Signs OB Clinic Coordination of Care: Consent,records obtained, informed consent, Education Simp Pt/Fam, Lab and Imaging orders, Results/Orders obtained and Staff clarify orders Established Patient Charge Established Patient Point Assignment: 95 Established Patient Point Charge: EP Level 3 (80-115) Assessment & Plan Diagnosis / Problem List (1) Surveillance of oral contraceptive pills for non-contraception indication performed: Status: Acute (2) Surveillance of oral contraception performed: Status: Acute Plan Lucrecia x 6. Review method, side effects, compliance. Discussed diet and exercise. Continue prenatals. Patient will return in a year or as needed when she stops breast-feeding to change to combo pill. Pap is in 5 years Additional Plan Follow Up: 6 Months (ocp refill)
[2025-08-12 10:22] VITALS: BP 112/69; PULSE 72; RESP 18; TEMP 36.1; O2SAT 98; BMI 34.4
== END 2025-08-12 10:53 | disposition home or self-care (01) ==
LOC: HODSOBC 10:08
PROVIDERS: Supervising Provider Advanced Practice Midwife; Visit Provider Advanced Practice Midwife
DX: Z30.41 Encounter for surveillance of contraceptive pills (principal)
CPT/HCPCS: 99213; G0463